=== PATIENT | male | born 2005 | race Caucasian/White ===

== ENCOUNTER 2025-04-16 23:57 | Emergency (ER) | payer BC, SELFPAY ==
[2025-04-17 00:01] VITALS: BP 141/90; PULSE 85; TEMP 37.3; O2SAT 99; BMI 19.6
--- NOTE | 2025-04-17 00:20 | ED.SKABFB1 ---
HPI - Skin/Abscess/Foreign Bdy General Chief complaint: Skin/Abscess/Foreign Body Stated complaint: Piercing Infection Time Seen by Provider: 04/17/25 00:01 Source: patient Mode of arrival: walk-in History of Present Illness HPI narrative: cc - pain at left upper cheek piercing Pt had a piercing placed in his left upper cheek about one month ago and has been recently experiencing pain at the insertion/piercing site and the surrounding tissue. No redness, but it does hurt to blink the left eye. No left eye redness or swelling or visual change. He said that he has been cleaning it regularly. He has not contacted the piercing shop to have it removed. His friend had some left over cipro - so the patient started taking it three days ago. Related Data Previous Rx's ?Medication ?Instructions ?Recorded cephalexin 500 mg capsule 500 mg PO QID 7 days #28 caps 04/17/25 Allergies Allergy/AdvReac Type Severity Reaction Status Date / Time No Known Drug Allergies Allergy Verified 04/17/25 00:05 PFSH PFSH Social History Little interest or pleasure in doing things: not at all Feeling down, depressed, or hopeless: not at all Exam Narrative Exam Narrative: Nurses notes and vital signs reviewed and patient is not hypoxic. afebrile General: Well-appearing and in no apparent distress. Skin: Warm, dry, no pallor noted. Piercing left upper cheek = tender to touch but no surrounding or associated swelling, erythema, warmth or abscess. Head: Left cheek is described above. Remainder of the face is normocephalic, atraumatic. Neck: Supple, non-tender. No lymphadenopathy Eye: Pupils are equal, round and EOMI. No scleral icterus. Ears, Nose, Mouth, and Throat: Oral mucosa is moist Cardiovascular: Normal peripheral perfusion. Respiratory: No accessory muscle use or respiratory distress. Neurological: A&O x4. No cranial nerve dysfunction observed. No truncal ataxia. Moves all extremities. Sensation intact. Psychiatric: Cooperative and interactive. Normal mood and affect. Constitutional Vital Signs, click to edit/add: Last Vital Signs Temp 99.1 F 04/17/25 00:01 Pulse 85 04/17/25 00:01 Resp 20 04/17/25 00:01 BP 141/90 04/17/25 00:01 Pulse Ox 99 04/17/25 00:01 O2 Del Method Room Air 04/17/25 00:01 Course Vital Signs Vital signs: Vital Signs Temperature 99.1 F 04/17/25 00:01 Pulse Rate 85 04/17/25 00:01 Respiratory Rate 20 04/17/25 00:01 Blood Pressure 141/90 04/17/25 00:01 Pulse Oximetry 99 04/17/25 00:01 Oxygen Delivery Method Room Air 04/17/25 00:01 Temperature 99.1 F 04/17/25 00:01 Pulse Rate 85 04/17/25 00:01 Respiratory Rate 20 04/17/25 00:01 Blood Pressure 141/90 04/17/25 00:01 Pulse Oximetry 99 04/17/25 00:01 Oxygen Delivery Method Room Air 04/17/25 00:01 MDM - Skin/Abscess/Foreign Bdy MDM Narrative Medical decision making narrative: I do not see any sign of infection, I will start this patient on appropriate antibiotics. He was instructed to stop the ciprofloxacin. He will be started on cephalexin. Additionally, I instructed the patient to go to either at the shop in which he got the piercings done or another shop that does professional piercings and had the piercing removed if it is bothering him. Did not know how these piercings were given not comfortable incising into the patient's cheek in order to try and remove this. Discharge Plan Discharge Chief Complaint: Skin/Abscess/Foreign Body Clinical Impression: Body piercing Patient Disposition: Home, Self-Care Time of Disposition Decision: 00:26 Prescriptions / Home Meds: New cephalexin 500 mg capsule 500 mg PO QID 7 Days Qty: 28 0RF Print Language: Vietnamese Instructions: Soft Tissue Foreign Body (ED) Referrals: Physician,Non-Staff, MD [Primary Care Provider] - 1 week
== END 2025-04-17 00:39 | disposition home or self-care (01) ==
PROVIDERS: Emergency Provider Emergency Medicine
DX: G50.1 Atypical facial pain (principal)
CPT/HCPCS: 99283